=== PATIENT | male | born 1980 | race Caucasian/White ===

== ENCOUNTER → 2019-08-22 14:18 | Outpatient (CLI) | payer BC, SELFPAY ==
--- NOTE | ~2019-08-22 | XR_ITS ---
XR lumbar spine 2-3V DATE: 08/22/2019 14:38 INDICATION: Low back pain for 2 days. No injury. TECHNIQUE: Standing AP, lateral, coned lateral lumbosacral views COMPARISON: 02/14/2014 lumbar spine FINDINGS: Mild levoscoliosis of the thoracolumbar spine. No fracture or bone destruction is evident. The included lower thoracic and lumbar pedicles are intac t. No spondylolisthesis. Lumbar and lumbosacral interspaces are relatively preserved. The sacroiliac joints are normal. IMPRESSION: Mild levoscoliosis Reviewed, dictated and finalized at location B. HOUSER IMPRESSION: Mild levoscoliosis
== END ==
PROVIDERS: PCP Family Medicine; Visit Provider Nurse Practitioner Family
DX: M54.9 Dorsalgia, unspecified (principal)
CPT/HCPCS: 72100

== ENCOUNTER → 2020-03-16 16:00 | Outpatient (CLI) | payer BC, SELFPAY ==
--- NOTE | ~2020-03-16 | US_ITS ---
EXAMINATION: US soft tissue lower back DATE: 03/16/2020 16:13 INDICATION: Palpable nodule at the right posterolateral back. TECHNIQUE: Multiple grayscale and Doppler ultrasound images of the region of concern at the right pos terolateral back were obtained. COMPARISON: None FINDINGS: Normal appearance to the subcutaneous fat and visualized underlying musculature at the region of conc reynaldo. No abnormal masses or fluid collections identified. IMPRESSION: 1. Unremarkable study. No abnormal masses or fluid collections identified. Reviewed, dictated and finalized at location A.
== END ==
PROVIDERS: PCP Nurse Practitioner Family; Visit Provider Nurse Practitioner Family
DX: R22.9 Localized swelling, mass and lump, unspecified (principal)
CPT/HCPCS: 76705

== ENCOUNTER → 2020-05-09 09:45 | Outpatient (CLI) | payer BC, SELFPAY ==
--- NOTE | ~2020-05-09 | MR_ITS ---
EXAMINATION: MR lumbar spine wo con EXAM DATE: 05/09/2020 10:22 INDICATION: chronic back pain lbp x 2yrs. TECHNIQUE: Multi-sequential, multiplanar MR images of the lumbar spine were obtained without contrast . Sagittal T1, T2, T2 fat saturation images. Axial T2 weighted images. There is no prior study for comparison. FINDINGS: There is mild to moderate loss of the L5-S1 disc height with 4 mm retrolisthesis, small marlene ular fissure. The vertebral body and disc heights are otherwise well maintained. The vertebral bodies are otherwise aligned. The conus medullaris terminates at the L1/2 level and has normal signal inten sity and morphology. There are no suspicious marrow signal abnormalities. Paraspinal soft tissue is unremarkable. Level by level evaluation: T12-L1: Disc does not extend beyond the endplate margin. Facet arthropathy: None. Neural foraminal stenosis: No stenosis. Central canal stenosis: No stenosis. L1-L2: Disc does not extend beyond the endplate margin. Facet arthropathy: Mild. Neural foraminal stenosis: No stenosis. Central canal stenosis: No stenosis. L2-L3: Disc does not extend beyond the endplate margin. Facet arthropathy: Mild. Neural foraminal stenosis: No stenosis. Central canal stenosis: No stenosis. L3-L4: There is a minimal diffuse disc bulge. Facet arthropathy: Mild. Neural foraminal stenosis: No stenosis. Central canal stenosis: No stenosis. L4-L5: There is a mild diffuse disc bulge. Facet arthropathy: Mild. Neural foraminal stenosis: Minimal bilateral. Central canal stenosis: No stenosis. L5-S1: There is a mild diffuse disc bulge, small left central extrusion. Facet arthropathy: Mild. Neural foraminal stenosis: Mild left. Central canal stenosis: Mild left lateral recess. IMPRESSION: 1. Mild lumbar spondylosis. Reviewed, dictated and finalized at location A. PIPELINE OPERATOR IMPRESSION: 1. Mild lumbar spondylosis.
== END ==
PROVIDERS: Visit Provider Nurse Practitioner Family
DX: M43.17 Spondylolisthesis, lumbosacral region (principal); M47.817 Spondylosis without myelopathy or radiculopathy, lumbosacral region; M48.07 Spinal stenosis, lumbosacral region
CPT/HCPCS: 72148

== ENCOUNTER 2021-01-25 02:07 | Emergency (ER) | payer BC, SELFPAY ==
[2021-01-25 02:09] VITALS: BP 112/82; PULSE 77; RESP 16; TEMP 36.6; O2SAT 98
--- NOTE | 2021-01-25 04:30 | PC.NURSE ---
pt seen by intake nurse leaving facility. wasnt able to get exit vitals on pt.
--- NOTE | 2021-01-25 04:37 | ED.EYEPROB ---
HPI - Eye Problem General Chief complaint: Eye Problems Stated complaint: right eye irritation Time Seen by Provider: 01/25/21 03:42 History of Present Illness HPI Narrative: He believes that he got a piece of metal in his eye yesterday. He has pain and foriegn body sensation in the right eye. This is associated with redness and mildly blurry vision. He thought he saw something in the mirror, but he was not able to get it out. Related Data Allergies Allergy/AdvReac Type Severity Reaction Status Date / Time No Known Allergies Allergy Verified 11/25/20 15:15 Review of Systems Constitutional: Constitutional: Denies fever(s) Eyes: Eyes: Reports as per HPI ENT: Reports system reviewed and no additional complaints, except as documented Cardiovascular: Cardiovascular: Denies chest pain Respiratory: Respiratory: Denies dyspnea [facility] Past Medical History Medical History BMI 25.0-25.9,adult BMI 26.0-26.9,adult Social History Social History Smoking status: Current every day smoker Tobacco type: cigarettes Alcohol intake: never Substance use: never Exam Const: General: healthy appearing, no acute distress and alert Orientation/consciousness: patient oriented x3 HENMT: Head: normal to inspection Eyes: Alignment and Position: alignment normal Periorbital: periorbital findings normal Eyelids: eyelids normal Conjunctivae: conjunctival abnormality right conjunctival injection Cornea: other (punctate metalic object with small rust ring on right cornea) Pupils: Equal, round and reactive pupils present Resp: Effort & Inspection: normal respiratory effort Skin: General skin exam: normal color Neuro: General: patient oriented x3, moves all extremities, no focal motor deficits and CN's II-XI intact bilaterally Speech: normal speech Gait exam (Neuro): Normal gait present Course Vital Signs Vital signs: Vital Signs Temperature 36.6 C 01/25/21 02:09 Pulse Rate 77 01/25/21 02:09 Respiratory Rate 16 01/25/21 02:09 Blood Pressure 112/82 01/25/21 02:09 Pulse Oximetry 98 01/25/21 02:09 Temperature 36.6 C 01/25/21 02:09 Pulse Rate 77 01/25/21 02:09 Respiratory Rate 16 01/25/21 02:09 Blood Pressure 112/82 01/25/21 02:09 Pulse Oximetry 98 01/25/21 02:09 MDM - Eye Problem MDM Narrative Medical decision making narrative: After the slit lamp exam I left to get supplies for rust ring removal. The pateint immediately got up and walked out without informing anyone. Discharge Plan Discharge Clinical Impression: Corneal rust ring of right eye Patient Disposition: Elopement After Seen by Prov Condition: Stable Prescriptions: No Action albuterol sulfate [ProAir HFA] 90 mcg/actuation HFA aerosol inhaler 1 puff INHALATION Q4H PRN (Reason: shortness of breath or wheezing) Qty: 8.5 RF: 1 tizanidine 4 mg tablet 4 mg PO TID PRN (Reason: muscle spasticity) Qty: 10 RF: 0 bupropion HCl 150 mg tablet extended release 24 hr See Rx Instructions .ROUTE .COMPLEX Qty: 90 RF: 3 omeprazole 20 mg capsule,delayed release(DR/EC) 20 mg PO DAILY Qty: 90 RF: 4 Follow-up/Referrals: Filiberto Lauren MD [Primary Care Provider] -
== END 2021-01-25 04:30 | disposition left against medical advice (07) ==
PROVIDERS: Emergency Provider Emergency Medicine; PCP Family Medicine
DX: T15.91XA Foreign body on external eye, part unspecified, right eye, initial encounter (principal); F17.210 Nicotine dependence, cigarettes, uncomplicated
CPT/HCPCS: 99282; A9270

== ENCOUNTER → 2022-09-30 16:53 | Outpatient (CLI) | payer BC, SELFPAY ==
--- NOTE | ~2022-09-30 | XR_ITS ---
EXAMINATION: XR thoracic spine 2V DATE: 09/30/2022 17:25 INDICATION: Thoracic back pain TECHNIQUE: AP, lateral and lateral swimmer's views of the thoracic spine were obtained. COMPARISON: 02/14/2014 FINDINGS: Bone alignment is normal. There is no fracture. There is mild loss of intervertebral disc s pace height at a few levels in the thoracic spine. Small degenerative osteophytes project from the an terior endplates of multiple vertebral bodies. IMPRESSION: 1. Mild thoracic spondylosis without acute findings. Reviewed, dictated and finalized at location F.
--- NOTE | ~2022-09-30 | XR_ITS ---
EXAMINATION: XR lumbar spine 2-3V DATE: 09/30/2022 17:25 INDICATION: Low back pain TECHNIQUE: Anteroposterior and lateral views of the lumbar spine, and cone-down lateral view of the l umbosacral junction were obtained. COMPARISON: 08/22/2019 FINDINGS: There is mild chronic loss of intervertebral disc space height at L5-S1. The lumbar interve rtebral disc spaces are otherwise maintained. The vertebral body heights are normal. There is mild fa cet joint osteoarthritis of the mid and lower lumbar spine. Small degenerative osteophytes project fr om the anterior endplates of multiple vertebral bodies. IMPRESSION: 1. Mild lumbar spondylosis without acute findings or significant interval change. Reviewed, dictated and finalized at location F. IMPRESSION: 1. Mild lumbar spondylosis without acute findings or significant interval amos collins
--- NOTE | ~2022-09-30 | XR_ITS ---
EXAMINATION:XR_CERV2-3V_CR DATE: 09/30/2022 17:25 INDICATION: Neck pain TECHNIQUE: AP, lateral, and odontoid views of the cervical spine are provided. COMPARISON: None FINDINGS: Alignment is normal. The odontoid process is intact. No fracture is identified. Vertebral b shelly heights and disk spaces are normal. There is mild multilevel facet and uncovertebral joint osteoa rthritis. Prevertebral soft tissues are normal. IMPRESSION: 1. Mild cervical spondylosis without acute findings. Reviewed, dictated and finalized at location F.
== END ==
PROVIDERS: PCP Chiropractor; Visit Provider Chiropractor
DX: M47.816 Spondylosis without myelopathy or radiculopathy, lumbar region (principal); M47.814 Spondylosis without myelopathy or radiculopathy, thoracic region; M47.812 Spondylosis without myelopathy or radiculopathy, cervical region
CPT/HCPCS: 72040; 72070; 72100

== ENCOUNTER 2023-06-08 07:51 | Outpatient (CLI) | payer BC, SELFPAY ==
--- NOTE | ~2023-06-08 | MR_ITS ---
MRI of the cervical spine Clinical History: Neck pain Technique: Axial T2-weighted and gradient images, and sagittal T1-weighted, T2-weighted, and STIR adria ges were acquired. Findings: There is no fracture or subluxation of the cervical spine. Vertebral bodies maintain normal height and alignment. No bone marrow signal abnormality seen. At C2-C3, there is no disc bulge or herniation. There is mild bilateral facet arthropathy and possibl e minimal bilateral neural foraminal narrowing. No central canal stenosis or cord compression. At C3-C4, there is minimal bilateral neural foraminal narrowing, right worse than left, with mild murray ateral facet arthropathy. No disc bulge or herniation. No central canal stenosis or cord compression. At C4-C5, there is probable mild bilateral neural foraminal narrowing related to bilateral mild facet arthropathy. No disc bulge or herniation. No central canal stenosis or cord compression. At C5-C6, there is no disc bulge or herniation. No central canal stenosis, cord compression, or neura l foraminal narrowing. At C6-C7, there is no significant disc bulge or herniation. No spinal canal stenosis, cord compressio n, or neural foraminal narrowing. No abnormal signal seen in the spinal cord. Paravertebral soft tissues are unremarkable. Impression: Mild to moderate degenerative spondylosis, with multilevel neural foraminal narrowing the upper cervi carlos spine, as detailed above. Reviewed, dictated and finalized at [facility]. TY MANAGER Impression: Mild to moderate degenerative spondylosis, with multilevel neural foraminal jesus manuel rowing the upper cervical spine, as detailed above.
== END 2023-06-08 07:52 | disposition home or self-care (01) ==
PROVIDERS: PCP Chiropractor
DX: M43.02 Spondylolysis, cervical region (principal); M48.02 Spinal stenosis, cervical region
CPT/HCPCS: 72141

== ENCOUNTER 2025-01-12 13:59 | Emergency (ER) | payer BC, SELFPAY ==
--- OUTSIDE RECORDS SUMMARY | 2025-01-12 14:01 | XMS_ITS | Clinical Summary ---
Author Organization [facility] [employer] Address [address] [place] [address] Care Team Providers Care Sales Process Manager Name Role Phone Filiberto Lauren MD Primary Care Provider [phone] Source Comments [facility],non-owned Affiliates and Associated Physician Practices is amultiple site organization consisting of ambulatory clinics and hospital sitesin [place], [place], [place] and [place]. This disclosure is being madepursuant to the Care Everywhere program and may not contain all information available regarding this patient. Last updated 18.[facility] [employer] Allergies No known active allergies Medications * Be aware that medications may not be up to date on this document. Alwaysverify current medications with the patient. buPROPion HCl (WELLBUTRIN PO) Active diphenhydramin e 12.5mg/ml, 30ml,; visc lidocaine 2%, 30ml,; maalox, 30ml, (MIRACLE MOUTHWASH) SUSP 1:1:1 solution of viscous lidocaine 2%, Maalox, diphenhydramine 12.5mg/5ml elixir 90 mL 08/30/19 19 Active Social History Tobacco Use Types Packs/Day Years Used Date Smoking Tobacco: Every Day Cigarettes Smokeless Tobacco: Never Sex and Gender Information Value Date Recorded Sex Assigned at Not on file Legal Sex Male 7:54 AM UNDERWRITING SERVICE REPRESENTATIVE Gender Identity Not on file Sexual Orientation Not on file Last Filed Vital Signs Vital Sign Reading Time Taken Comments Blood Pressure 120/74 08/29/2018 4:13 PM CDT Pulse 100 08/29/2018 4:13 PM CDT Temperature 38.1 C (100.5 F) 08/29/2018 4:13 PM CDT Respiratory Rate 16 08/29/2018 4:13 PM CDT Oxygen Saturation 98% 08/29/2018 4:13 PM CDT Inhaled Oxygen Concentration - - Weight 81.6 kg (180 lb) 08/29/2018 4:13 PM CDT Height 180.3 cm (5' 11) 08/29/2018 4:13 PM CDT Body Mass Index 25.1 08/29/2018 4:13 PM CDT Plan of Treatment Health Maintenance Due Date Last Done Comments LIPID TESTING 1980 HIV SCREENING 10/10/1995 HEPATITIS C SCREENING 10/05/1998 DTAP/TDAP/TD VACCINES (1 - Tdap) 10/10/1999 HEPATITIS B VACCINE (1 of 3 - 19+ 3-dose series) 10/10/1999 HPV VACCINE (1 - 3-dose SCDM series) 10/10/2007 COVID-19 VACCINE (1 - 2023-2 5 season) 2024 DEPRESSION SCREENING 06/19/2024 INFLUENZA VACCINE (#1) 2025 ZOSTER VACCINE (1 of 2) 2030 HIB VACCINE Aged Out No longer eligi ble based on patient's age to complete this topic MENINGOCOCCAL (Group B) VACC INE SHARED DECISION-MAKING Aged Out No longer eligibl e based on patient's age to complete this topic MENINGOCOCCAL GROUPS A/C/Y/W VACCINE Aged Out No longer eligible b ased on patient's age to complete this topic PNEUMOCOCCAL VACCINE Aged Out No long er eligible based on patient's age to complete this topic Insurance [employer] Care Teams Sales Process Manager Relationship Specialty Start Date End Date Fiilberto Lauren MD [address] [place] [address] PCP - General Family Medicine 08/29/18
--- OUTSIDE RECORDS SUMMARY | 2025-01-12 14:01 | XMS_ITS | Clinical Summary ---
Author Organization [facility] Address [address] [place] [address] Care Team Providers Care Crystal Attacher Name Role Phone Unavailable Primary Care Provider Unavailabl e Social History Tobacco Use Types Packs/Day Years Used Date Smoking Tobacco: Never Assessed Sex and Gender Information Value Date Recorded Sex Assigned at Not on file Legal Sex Male 6:29 PM CDT Gender Identity Not on file Sexual Orientation Not on file Last Filed Vital Signs Vital Sign Reading Time Taken Comments Blood Pressure 122/74 05/18/2012 5:39 PM MEDICAL ANTHROPOLOGY DIRECTOR Pulse 86 05/18/2012 5:39 PM MEDICAL ANTHROPOLOGY DIRECTOR Temperature - - Respiratory Rate - - Oxygen Saturation - - Inhaled Oxygen Concentration - - Weight 83.9 kg (185 lb) 05/18/2012 5:39 PM MEDICAL ANTHROPOLOGY DIRECTOR Height - - Body Mass Index - - Plan of Treatment Health Maintenance Due Date Last Done Comments Annual Physical 10/10/1983 Hepatitis C 1998 DTaP, Tdap and Td Vaccines ( 1 - Tdap) 10/10/1999 Hepatitis B Vaccines (1 of 3 - 19+ 3-dose series) 10/10/1999 HPV Vaccines (1 - 3-dose SCD M series) 10/10/2007 COVID-19 Vaccine (2023-2 5 season) 2024 Meningococcal B Vaccine Aged Out No l onger eligible based on patient's age to complete this topic Meningococcal Vaccine Aged Out No dorothy lee eligible based on patient's age to complete this topic Pneumococcal Vaccine: Pediat rics (0 to 5 Years) and At-Risk Patients (6 to 49 Years) Aged Out No longer eligible b ased on patient's age to complete this topic RSV Immunizations Under 20 Months Aged Out No longer eligible based on patient's age to complete this topic
--- OUTSIDE RECORDS SUMMARY | 2025-01-12 14:01 | XMS_ITS | Referral Summary ---
Author Organization [facility] Address [address] [place] [address] Care Team Providers Care Dynamometer Tester Engine Name Role Phone Filiberto Lauren MD Primary Care Provider + [phone] Allergies No known active allergies Medications buPROPion (WELLBUTRIN) 100 mg tablet Take by mouth Active omeprazole (PriLOSEC) 20 mg capsule Take 1 capsule (20 mg total) by mouth daily 07/10/2020 Active nabumetone (RELAFEN) 750 mg tablet Take 1 tablet (750 mg total) by mouth 2 (two) times a day Active cyclobenzaprine (FLEXERIL) 10 mg tablet Take 1 tablet at bedtime as needed for pain 30 tablet 07/21/2020 Active Active Problems No known active problems Social History Tobacco Use Types Packs/Day Years Used Date Smoking Tobacco: Every Day Cigarettes Smokeless Tobacco: Never Tobacco Cessation:Ready to Q uit: Not Asked; Counseling Given: Yes Alcohol Use Standard Drinks/Week Comments Yes 0 (1 standard drink = 0.6 oz pur e alcohol) rare AUDIT-C Answer Date Recorded Q1: How often do you have a drink containing alc ohol? Never 05/23/2023 Average Number of Drinks Not on file 023 Q3: How often do you have si x or more drinks on one occasion? Never 05/23/2023 Personal Safety Answer Date Recorded Getting School Help Needed Not on file 06/01 Sex and Gender Information Value Date Recorded Sex Assigned at Not on file Legal Sex Male 7:49 PM PLANNER INTERN Gender Identity Not on file Sexual Orientation Not on file Occupation Industry Job Start Date Job End Date [employer] Not on file Not on file Not on file Last Filed Vital Signs Vital Sign Reading Time Taken Comments Blood Pressure 118/83 05/23/2023 9:39 AM PLANNER INTERN Pulse 86 05/23/2023 9:39 AM PLANNER INTERN Temperature - - Respiratory Rate - - Oxygen Saturation - - Inhaled Oxygen Concentration - - Weight 88 kg (194 lb) 05/23/2023 9:39 AM PLANNER INTERN Height 177.8 cm (5' 10) 05/23/2023 9:39 AM PLANNER INTERN Body Mass Index 27.84 05/23/2023 9:39 AM PLANNER INTERN Plan of Treatment Not on file Insurance [employer] ACCESS CHOICE [employer] ACCESS CHOICE Care Teams Dynamometer Tester Engine Relationship Specialty Start Date End Date Filiberto Lauren MD PCP - General Family Medicine 05/12/20
--- OUTSIDE RECORDS SUMMARY | 2025-01-12 14:01 | XMS_ITS | Patient Health Record ---
Author Organization [facility] [employer] [facility] Address [address] [place] [address] Care Team Providers Care Senior Php Web Developer Name Role Phone Brando Ely Unavailable [phone] Reason For Referral No Information Medications Medication SIG (Take, Route, Frequency, Duration) Notes Start Date End Date Status Atomoxetine HCl 40 MG Oral Active Azithromycin 250 MG Oral Active predniSONE 20 MG Oral Act jack Omeprazole 20 MG Oral Act jack BinaxNOW COVID-19 Ag Card In Vitro *Reorder from [facility] for eRx and Interaction Alerts* Active ProAir HFA 108 (90 Base) MCG/ACT Inhalation Active buPROPion HCl ER (XL) 150 MG Oral Active Plan Of Treatment No Information Insurance Providers Payer Name Payer Address Payer Phone Subscriber Number Group Number Insured Name Patient Relationship to Insured Coverage Start Date Coverage End Date [facility] [address] [place] [address] [id number] EDDIE ARELLANO Self - patient is the insured
--- OUTSIDE RECORDS SUMMARY | 2025-01-12 14:02 | XMS_ITS | Clinical Summary ---
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 Not on file Not on file Obstetrics History Last Filed Vital Signs Vital Sign Reading Time Taken Comments Blood Pressure 118/83 05/23/2023 9:39 AM PSYCH NP Pulse 86 05/23/2023 9:39 AM PSYCH NP Temperature - - Respiratory Rate - - Oxygen Saturation - - Inhaled Oxygen Concentration - - Weight 88 kg (194 lb) 05/23/2023 9:39 AM PSYCH NP Height 177.8 cm (5' 10) 05/23/2023 9:39 AM PSYCH NP Body Mass Index 27.84 05/23/2023 9:39 AM PSYCH NP Plan of Treatment Health Maintenance Due Date Last Done Comments Depression Screening 1980 Hepatitis C Screening 1980 DTaP/Tdap/Td Vaccine (1 - Tdap) 10/10/1991 Varicella Vaccines (1 of 2 - 13+ 2-dose series) 1993 Hepatitis B Screening 1998 Regular Well Visit/Exam 18-64 1998 Pneumococcal vaccine <65 (1 of 2 - PCV) 10/10/1999 HPV Vaccines (1 - 3-dose SCDM series) 10/10/2007 Influenza Vaccine (#1) 2025 Insurance [facility] Share Your Brain CHOICE [facility] ACCESS CHOICE Care Teams Mechanical Facilities Technician Relationship Specialty Start Date End Date Filiberto Lauren MD PCP - General Family Medicine 05/12/20
--- NOTE | 2025-01-12 14:03 | ED.EYEPROB ---
HPI - Eye Problem General Chief complaint: Eye Problems Stated complaint: eye redness Time Seen by Provider: 01/12/25 14:03 Source: patient Mode of arrival: ambulatory Limitations: no limitations History of Present Illness HPI Narrative: Patient is a 44-year-old male who presents with right eye redness, pain and photosensitivity for 2 days. 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 Patient had annual eye exam last week. No blurred vision. Related Data Allergies Allergy/AdvReac Type Severity Reaction Status Date / Time No Known Allergies Allergy Verified 01/12/25 14:08 Review of Systems Review of Systems: All systems reviewed & are unremarkable except as noted in HPI and below Constitutional: Constitutional: Denies body ache(s), Denies fever(s), Denies headache(s), Denies malaise and Denies weakness Eyes: Eyes: Denies blurry vision, Denies eye discharge, Reports irritation, Denies itchy eyes, Denies loss of vision, Reports eye pain and Reports photophobia ENT: Denies otalgia, Denies headache(s), Denies nasal discharge, Denies sinus pain and Denies sore throat Cardiovascular: Cardiovascular: Denies chest pain, Denies irregular heart rhythm and Denies dyspnea Respiratory: Respiratory: Denies dyspnea Gastrointestinal: Gastrointestinal: Denies abdominal pain, Denies diarrhea, Denies nausea and Denies vomiting Musculoskeletal: Musculoskeletal: Denies back pain, Denies myalgias and Denies arthralgias Integumentary/Breasts: Skin/Breast: Denies pruritus and Denies rash Neurologic: Denies headache(s), Denies loss of vision and Denies weakness Psychiatric: Psychiatric: Reports no additional psychiatric complaints Allergic/Immunologic: Allergic/Immunologic: Reports itchy eyes PMFSH Past Medical History Medical History BMI 28.0-28.9,adult BMI 27.0-27.9,adult BMI 25.0-25.9,adult BMI 26.0-26.9,adult Family History Family History Father No problems noted. Mother Diabetes mellitus Sibling No problems noted. 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 There is no relevant family history pertinent to the presenting complaint. Exam Const: General: cooperative, healthy appearing, comfortable, no acute distress and well nourished Nutritional Appearance: well nourished Orientation/consciousness: patient oriented x3 Limitations: no limitations HENMT: Head: normal to inspection, normocephalic and atraumatic Ears: external ears normal Face/Nose/Sinus: Normal external nose present, normal facial exam and face symmetric Face and sinus: normal facial exam and face symmetric Mouth: Yes lip normal Eyes: General: appearance normal, both eyes and all related structures Visual Pressley: normal visual pressley by confrontation Alignment and Position: alignment normal and position normal Periorbital: periorbital findings normal Eyelids: eyelids normal Conjunctivae: conjunctival abnormality right conjunctival injection diffuse Sclera: scleral abnormality right scleral injection diffuse Cornea: corneas abnormal on the right fluorescein used and foreign body (black speck) at clock position (3 oclock ); without a rust ring Pupils: Equal, round and reactive pupils present EOM: EOMs intact bilaterally Direct Ophthalmoscopy: photophobia Other: No hyphema, no foreign body under the lids. Eyes/upper lids images:  1. black speck, no rust ring Neck: Neck: normal visual inspection, full ROM, no lymphadenopathy and no meningeal signs Chest: Chest palpation & inspection: normal inspection of the chest Resp: Effort & Inspection: normal respiratory effort and able to speak in complete sentences Auscultation: clear to auscultation bilaterally Cardio: Rate: regular rate Rhythm: regular rhythm Heart sounds: S1 normal heart sound present and S2 normal heart sound present GI: Inspection: normal to inspection Skin: General skin exam: normal color and no rashes or lesions noted Neuro: General: patient oriented x3, moves all extremities and no meningeal signs Cranial nerves: Yes Equal, round and reactive pupils present Speech: normal speech Gait exam (Neuro): Normal gait present Extrem: General: normal to inspection, full ROM and no edema Psych: Appearance: grossly normal and well kempt Mental Status: mental status grossly normal Speech and movement: Normal speech and movement present Affect: normal affect Attitude: cooperative Thought process: Normal thought process present Course Course Emergency Course: Patient is aware of diagnosis, understands and agrees to treatment plan. Anticipatory guidance given. Patient agrees to follow-up as directed and is aware of reasons to seek care at the emergency department. Portions of this record may have been created with voice recognition software Level of Care: Express Care Visit Vital Signs Vital signs: Reviewed MDM - Eye Problem MDM Narrative Medical decision making narrative: Topical anesthetic was instilled with good anesthesia using 1gtt of opth anesthetic agent (tetracaine). Fluorescein stain of the R eye was performed with uptake of dye. FB present and removed with qtip, no rust ring present. Upper lid was everted and no FB or lesions were noted. Will treat with antibiotic eyedrops Pt well hydrated appearing, in no respiratory distress The patient is stable at time of discharge the clinical impression was discussed and the patient was given the opportunity to ask questions, which were addressed as completely as possible given the information available at present. Anticipatory guidance and return to care precautions were discussed and the importance of primary care follow-up was stressed and encouraged. The patient voiced understanding of the plan, indications to return, and the need for follow-up. Exam findings show no acute concerns or changes Patient is appropriate for outpatient treatment and follow-up. Differential Diagnosis Differential diagnosis: Likely corneal abrasion, conjunctivitis, periorbital cellulitis, corneal ulcer and other (Foreign body) Medical Records Attestation: I reviewed the patient's medical records. Discharge Plan Discharge Clinical Impression: Foreign body in eye, Corneal abrasion Patient Disposition: Home Condition: Stable Instructions: Eye Foreign Body (ED) Additional Instructions: Corneal abrasions will heal in 1-2 days. Keep your eye shut and wearing sunglasses or staying in low light to avoid light sensitivity. Do not touch or rub your eye or use a fabric patch (pirate's patch) You may take Tylenol or ibuprofen for pain Follow-up with PCP or director consumer affairs if condition is not improving in 2-3days. Patient Language: Sinhala Prescriptions: New ofloxacin 0.3 % drops 2 drp RIGHT EYE Q6H Qty: 5 0RF Rx Instructions: 2 drps into right eye; No Action omeprazole 20 mg capsule,delayed release(DR/EC) See Rx Instructions .ROUTE .COMPLEX Qty: 90 3RF Dose Instruction: TAKE 1 CAPSULE DAILY Rx Instructions: TAKE 1 CAPSULE DAILY bupropion HCl 150 mg tablet extended release 24 hr See Rx Instructions .ROUTE .COMPLEX Qty: 90 3RF Dose Instruction: TAKE 1 TABLET EVERY MORNING Rx Instructions: TAKE 1 TABLET EVERY MORNING Follow-up/Referrals: Filiberto Lauren MD [Primary Care Provider] - 3 Days Stand Alone Forms: Work/School Release IP Time of Disposition: 14:24
[2025-01-12 14:08] VITALS: BP 119/75; PULSE 77; RESP 18; TEMP 36.4; O2SAT 100
== END 2025-01-12 14:26 | disposition home or self-care (01) ==
PROVIDERS: Emergency Provider Nurse Practitioner Family; PCP Family Medicine
DX: T15.01XA Foreign body in cornea, right eye, initial encounter (principal); W44.9XXA Unspecified foreign body entering into or through a natural orifice, initial encounter; F17.210 Nicotine dependence, cigarettes, uncomplicated
CPT/HCPCS: 65220; 99213; A9270; G0463